=== PATIENT | male | born 1955 | race Caucasian/White ===

== ENCOUNTER 2016-06-08 06:51 | Emergency (ER) | payer OTHER ==
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
--- NOTE | 2016-06-08 08:17 | ED ORDER SUMMARY ---
..... Patient: CORWIN NICOLE OrderSheet [facility] VisitID: [id number] [place] [address] 61y, M Registration Date/Time: 06/08/2016 ORDER SHEET Weight: 117.9 kg (stated) Allergies: No Known Drug Allergy GENERAL ORDERS: Chest 1V Urgent (07:06/08/2016 Segundo OSROIO) (7:24 RMarsden R.N.) CT Head wo Cont Urgent (07:06/08/2016 Segundo OSORIO) (7:49 RMarsden R.N.) Shoulder 2V or more Left Urgent (07:06/08/2016 Segundo OSORIO) (7:24 RMarsden R.N.) MEDICATION ORDERS: Toradol IM 60 mg (NOW) (07:06/08/2016 Segundo OSORIO) (Ack 7:25 RMarsden R.N.) (7:49 RMarsden R.N.) Hydrocodone-APAP PO 5/325 mg (NOW, HIGH ALERT MEDICATION) (07:12 06/08/2016 Segundo OSORIO) (Ack 7:25 RMarsden R.N.) (7:47 RMarsden R.N.) IV FLUIDS: ORDER SHEET NOTES: [Electronically signed by Mariama Steiner R.N. (08:54 06/08/2016)] [Electronically signed by Estela Chun MD (12:44 06/13/2016)] [Electronically locked/signed by Mariama Steiner R.N. (08:54 06/08/2016)]
--- NOTE | 2016-06-08 08:17 | ED ORDER SUMMARY ---
..... Patient: CORWIN NICOLE OrderSheet [facility] VisitID: [id number] [place] [address] 61y, M Registration Date/Time: 06/08/2016 ORDER SHEET Weight: 117.9 kg (stated) Allergies: No Known Drug Allergy GENERAL ORDERS: Chest 1V Urgent (07:06/08/2016 Segundo OSORIO) (7:24 RMarsden R.N.) CT Head wo Cont Urgent (07:06/08/2016 Segundo OSORIO) (7:49 RMarsden R.N.) Shoulder 2V or more Left Urgent (07:06/08/2016 Segundo OSORIO) (7:24 RMarsden R.N.) MEDICATION ORDERS: Toradol IM 60 mg (NOW) (07:06/08/2016 Segundo OSORIO) (Ack 7:25 RMarsden R.N.) (7:49 RMarsden R.N.) Hydrocodone-APAP PO 5/325 mg (NOW, HIGH ALERT MEDICATION) (07:12 06/08/2016 Segundo OSORIO) (Ack 7:25 RMarsden R.N.) (7:47 RMarsden R.N.) IV FLUIDS: ORDER SHEET NOTES: [Electronically signed by Mariama Steiner R.N. (08:54 06/08/2016)] [Electronically signed by Estela Chun MD (12:44 06/13/2016)] [Electronically locked/signed by Mariama Steiner R.N. (08:54 06/08/2016)]
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
--- NOTE | 2016-06-13 12:44 | ED MED RECONCILIATION SUMMARY ---
Patient: CORWIN NICOLE Medication Reconciliation Report [facility] VisitID: [id number] [address] [place] [address] 61y, M Registration Date/Time: 06/08/2016 Weight: 117.9 kg Height/Length: 73 in. BMI: 34.3 ALLERGIES: No Known Drug Allergy The patient's Home Medications are listed below: CONTINUE TAKING THE FOLLOWING MEDICATIONS: Lisinopril Oral 40 mg, daily The source(s) of the original Home Medication information: patient The following Medications were given to the patient in the Emergency Department: Hydrocodone-APAP [PO] PO 1 tab, administered: 06/08/2016 7:47:00 AM Toradol [IM] IM 60 mg, administered: 06/08/2016 7:48:00 AM The following Medications were prescribed to the patient: Hydrocodone/APAP 5mg / 325mg: take 1-2 orally every 6 hours as needed for pain. Dispense twelve (12). No refill. -- Estela Chun MD
--- NOTE | 2016-06-13 12:44 | ED MED RECONCILIATION SUMMARY ---
Patient: CORWIN NICOLE Medication Reconciliation Report [facility] VisitID: [id number] [address] [place] [address] 61y, M Registration Date/Time: 06/08/2016 Weight: 117.9 kg Height/Length: 73 in. BMI: 34.3 ALLERGIES: No Known Drug Allergy The patient's Home Medications are listed below: CONTINUE TAKING THE FOLLOWING MEDICATIONS: Lisinopril Oral 40 mg, daily The source(s) of the original Home Medication information: patient The following Medications were given to the patient in the Emergency Department: Hydrocodone-APAP [PO] PO 1 tab, administered: 06/08/2016 7:47:00 AM Toradol [IM] IM 60 mg, administered: 06/08/2016 7:48:00 AM The following Medications were prescribed to the patient: Hydrocodone/APAP 5mg / 325mg: take 1-2 orally every 6 hours as needed for pain. Dispense twelve (12). No refill. -- Estela Chun MD
--- NOTE | 2016-06-13 12:44 | ED MAR SUMMARY ---
..... Medication Administration Record [facility] [address] [place] [address] Patient: CORWIN NICOLE Visit ID: [id number] 61y, M Weight: 117.9 kg Height/Length: 73 in BMI: 34.3 ALLERGIES: No Known Drug Allergy Given 07:47 06/08/2016 Mariama Steiner, RDanielNDaniel Medication Administered: HYDROCODONE-APAP [PO] (HYDROCODONE-ACETAMINOPHEN), Dose: 1 tab 5/325 mg Tablets PO. Medication Ordered: Hydrocodone-APAP PO 5/325 mg (NOW, HIGH ALERT MEDICATION). Given 07:48 06/08/2016 Mariama Steiner, RDanielN. Medication Administered: TORADOL [IM] (KETOROLAC TROMETHAMINE), Dose: 60 mg IM. Medication Ordered: Toradol IM 60 mg (NOW).
--- NOTE | 2016-06-13 12:44 | ED MAR SUMMARY ---
..... Medication Administration Record [facility] [address] [place] [address] Patient: CORWIN NICOLE Visit ID: [id number] 61y, M Weight: 117.9 kg Height/Length: 73 in BMI: 34.3 ALLERGIES: No Known Drug Allergy Given 07:47 06/08/2016 Mariama Steiner, RDanielNDaniel Medication Administered: HYDROCODONE-APAP [PO] (HYDROCODONE-ACETAMINOPHEN), Dose: 1 tab 5/325 mg Tablets PO. Medication Ordered: Hydrocodone-APAP PO 5/325 mg (NOW, HIGH ALERT MEDICATION). Given 07:48 06/08/2016 Mariama Steiner, RDanielN. Medication Administered: TORADOL [IM] (KETOROLAC TROMETHAMINE), Dose: 60 mg IM. Medication Ordered: Toradol IM 60 mg (NOW).
== END 2016-06-08 08:28 | disposition home or self-care (01) ==
LOC: ED SRH 06:51
DX: S16.1XXA Strain of muscle, fascia and tendon at neck level, initial encounter (principal); S46.812A Strain of other muscles, fascia and tendons at shoulder and upper arm level, left arm, initial encounter; S20.212A Contusion of left front wall of thorax, initial encounter; V43.52XA Car driver injured in collision with other type car in traffic accident, initial encounter; Y93.89 Activity, other specified; Y92.9 Unspecified place or not applicable; Y99.9 Unspecified external cause status; I10 Essential (primary) hypertension; Z79.899 Other long term (current) drug therapy

== ENCOUNTER 2016-06-18 14:35 | Emergency (ER) | payer OTHER ==
--- NOTE | 2016-06-18 16:07 | DIAGNOSTIC IMAGING REPORT ---
PROCEDURE: CT HEAD WITHOUT CONTRAST INDICATION: HEADACHE TECHNIQUE: Axial CT images were acquired through the head. Coronal and sagittal reformations were created. COMPARISON: Head CT 06/08/2016 FINDINGS: Left posterior parietal craniotomy with underlying encephalomalacia. Sulci and ventricular system are otherwise unremarkable. Minor white matter chronic ischemic changes. No evidence of an acute CVA, hemorrhage, mass or midline shift. Visualized mastoids and sinuses are clear. IMPRESSION: 1. No acute intracranial abnormality 2. Left parietal craniotomy and underlying encephalomalacia 3. Minor white matter chronic ischemic changes 4. Findings discussed with Klaus at 04:[address] scans at this facility use dose modulation, iterative reconstruction, and/or weight-based dosing when appropriate to reduce radiation dose to as low as reasonably achievable.
--- NOTE | 2016-06-18 16:26 | DIAGNOSTIC IMAGING REPORT ---
PROCEDURE: XR CHEST 2 VIEW INDICATION: CHEST PAIN TECHNIQUE: PA and lateral views. COMPARISON: 06/08/2016 chest FINDINGS: Lungs are clear. Heart and mediastinum are normal. Thorax is normal. IMPRESSION: 1. Negative chest.
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
--- NOTE | 2016-06-18 16:48 | ED ORDER SUMMARY ---
..... Patient: CORWIN NICOLE OrderSheet [facility] VisitID: [id number] [place] [address] 61y, M Registration Date/Time: 06/18/2016 ORDER SHEET Weight: 115.6 kg (stated) Allergies: No Known Drug Allergy GENERAL ORDERS: CT Head wo Cont Urgent (15:40 06/18/2016 EKoroleva P.A.-C) (Ack 15:41 KHoerner) (16:31 MCampbell) Chest 2V Urgent (15:45 06/18/2016 EKoroleva P.A.-C) (Ack 15:47 KHoerner) (16:31 MCampbell) EKG - ER Stat (16:16 06/18/2016 EKoroleva P.A.-C) (16:26 KHoerner) MEDICATION ORDERS: IV FLUIDS: ORDER SHEET NOTES: [Electronically signed by Liliam Enrique P.A.-C (23:36 06/18/2016)] [Electronically signed by Leonard Brantley R.N. (14:10 06/20/2016)] [Electronically locked/signed by Leonard Brantley R.N. (14:10 06/20/2016)]
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
--- NOTE | 2016-06-18 16:48 | ED ORDER SUMMARY ---
..... Patient: CORWIN NICOLE OrderSheet [facility] VisitID: [id number] [place] [address] 61y, M Registration Date/Time: 06/18/2016 ORDER SHEET Weight: 115.6 kg (stated) Allergies: No Known Drug Allergy GENERAL ORDERS: CT Head wo Cont Urgent (15:40 06/18/2016 EKoroleva P.A.-C) (Ack 15:41 KHoerner) (16:31 MCampbell) Chest 2V Urgent (15:45 06/18/2016 EKoroleva P.A.-C) (Ack 15:47 KHoerner) (16:31 MCampbell) EKG - ER Stat (16:16 06/18/2016 EKoroleva P.A.-C) (16:26 KHoerner) MEDICATION ORDERS: IV FLUIDS: ORDER SHEET NOTES: [Electronically signed by Liliam Enrique P.A.-C (23:36 06/18/2016)] [Electronically signed by Leonard Brantley R.N. (14:10 06/20/2016)] [Electronically locked/signed by Leonard Brantley R.N. (14:10 06/20/2016)]
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
--- NOTE | 2016-06-20 14:10 | ED DISCHARGE INSTRUCTIONS ---
Patient: CORWIN NICOLE General Instructions [facility] VisitID: [id number] [place] [address] 61y, M Registration Date/Time: 06/18/2016 Minor closed head injury. Concussion. Unknown whether a loss of consciousness occurred. Contusion. INSTRUCTIONS (no major activity/ physical exertion). Prescription Medications: Zofran (orally disintegrating tablets) 4 mg: take 1 orally every 6 hours for 3 days as needed for nausea. Dispense fifteen (15). No refill. Substitution is permissible. Zofran ODT 4 mg: take 1 orally every 6 hours as needed for nausea. Dispense ten (10). No refill. Substitution is permissible. OTC Medications: Acetaminophen ER 650 mg (available over the counter): take 1 orally every 8 hours for 5 days, as needed for pain. Dispense fifteen (15). No refill. Follow-up: Follow up with your doctor in three. ADDITIONAL INFORMATION Chest Contusion Acontusion is a bruise to the skin, muscle or ribs. It may cause pain, tenderness, swelling and a purplish discoloration. Contusions take a few days to a few weeks to heal. Home Care: Rest. You should not be doing any heavy lifting or strenuous exertion, or any activity that causes pain. You may use acetaminophen (Tylenol) or ibuprofen (Motrin, Advil) to control pain, unless another pain medicine was prescribed. [ NOTE: If you have chronic liver or kidney disease or ever had a stomach ulcer or GI bleeding, talk with your doctor before using these medicines.] Follow Up with your doctor during the next week or as directed. Get Prompt Medical Attention if any of the following occur: Shortness of breath Increasing chest pain with breathing Dizziness, weakness or fainting New or worsening of abdominal pain Fever of 100.4F (38C) or higher, or as directed by your healthcare provider Concussion (No Wake-Up) A concussion happens when you hit your head with enough force to shake up the brain. This may cause you to lose consciousness be "knocked out" - but not always. Depending on how hard you hit your head, it will take from a few hours up to a few days to get better. Sometimes symptoms may last a few months or longer. This is called post-concussion syndrome. At first, you may have a headache, nausea, vomiting, or dizziness. You may also have problems concentrating or remembering things. This is normal. Symptoms should get better as the hours and days go by. Symptoms that get worse could be a sign of a more serious injury. This might be a bruise or bleeding in the brain. Thats why its important to watch for the warning signs listed below. Home care Follow these tips to help care for yourself at home: During the next day (24 hours) someone must stay with you to check for the signs below. If your face or scalp swells, apply an ice pack for 20 minutes every 1 to 2 hours. Do this until the swelling starts to go down. You can make an ice pack by putting ice cubes in a plastic bag and wrapping the bag in a towel. for 20 minutes every 1-2 hours until the swelling starts to go down. You may use acetaminophen to control pain, unless another pain medicine was prescribed. If you have chronic liver or kidney disease, talk with your doctor before using these medicines. Also talk with your doctor if you ever had a stomach ulcer or GI bleeding. For the next 24 hours: Dont drink alcohol or take sedatives or medicines that make you sleepy. Dont drive or operate machinery. Avoid doing anything strenuous. Dont lift or strain. Dont return to sports or any activity that could cause you to hit your head until all symptoms are gone and you have been cleared by your doctor. A second head injury before fully recovering from the first one can lead to serious brain injury. Follow-up care Follow up with your doctor in 1 week, or as directed. Note: A radiologist will review any X-rays or CT scans that were taken. You will be told of any new findings that may affect your care. When to seek medical care Get prompt medical attention if any of these occur: Repeated vomiting Headache or dizziness that is severe or gets worse Unusual drowsiness, or unable to wake up as usual Confusion or change in behavior or speech, or memory loss Blurred vision Convulsion (seizure) Swelling on the scalp or face that gets worse Redness, warmth, or pus from the swollen area Fluid draining from or bleeding from the nose or ears Ondansetron Hydrochloride Oral tablet What is this medicine? ONDANSETRON (on SILVIA se varun) is used to treat nausea and vomiting caused by chemotherapy. It is also used to prevent or treat nausea and vomiting after surgery. How should I use this medicine? Take this medicine by mouth with a glass of water. Follow the directions on your prescription label. Take your doses at regular intervals. Do not take your medicine more often than directed. Talk to your senior analytic consultant regarding the use of this medicine in children. Special care may be needed. What side effects may I notice from receiving this medicine? Side effects that you should report to your doctor or health care management specialist as soon as possible: allergic reactions like skin rash, itching or hives, swelling of the face, lips or tongue breathing problems dizziness fast or irregular heartbeat feeling faint or lightheaded, falls fever and chills swelling of the hands or feet tightness in the chest Side effects that usually do not require medical attention (report to your doctor or health care management specialist if they continue or are bothersome): constipation or diarrhea headache What may interact with this medicine? Do not take this medicine with any of the following medications: -apomorphine -cisapride -dofetilide -dronedarone -pimozide -thioridazine -ziprasidone This medicine may also interact with the following medications: -carbamazepine -phenytoin -rifampicin -tramadol -other medicines that prolong the QT interval (cause an abnormal heart rhythm) What if I miss a dose? If you miss a dose, take it as soon as you can. If it is almost time for your next dose, take only that dose. Do not take double or extra doses. Where should I keep my medicine? Keep out of the reach of children. Store between 2 and 30 degrees C (36 and 86 degrees F). Throw away any unused medicine after the expiration date. What should I tell my health care provider before I take this medicine? They need to know if you have any of these conditions: heart disease history of irregular heartbeat liver disease low levels of magnesium or potassium in the blood an unusual or allergic reaction to ondansetron, granisetron, other medicines, foods, dyes, or preservatives or trying to get breast-feeding What should I watch for while using this medicine? Check with your doctor or health care management specialist right away if you have any sign of an allergic reaction. Ondansetron Oral disintegrating tablet What is this medicine? ONDANSETRON (on SILVIA se varun) is used to treat nausea and vomiting caused by chemotherapy. It is also used to prevent or treat nausea and vomiting after surgery. How should I use this medicine? These tablets are made to dissolve in the mouth. Do not try to push the tablet through the foil backing. With dry hands, peel away the foil backing and gently remove the tablet. Place the tablet in the mouth and allow it to dissolve, then swallow. While you may take these tablets with water, it is not necessary to do so. Talk to your senior analytic consultant regarding the use of this medicine in children. Special care may be needed. What side effects may I notice from receiving this medicine? Side effects that you should report to your doctor or health care management specialist as soon as possible: allergic reactions like skin rash, itching or hives, swelling of the face, lips, or tongue breathing problems dizziness fast or irregular heartbeat feeling faint or lightheaded, falls fever and chills swelling of the hands and feet tightness in the chest Side effects that usually do not require medical attention (report to your doctor or health care management specialist if they continue or are bothersome): constipation or diarrhea headache What may interact with this medicine? Do not take this medicine with any of the following medications: -apomorphine -cisapride -dofetilide -dronedarone -pimozide -thioridazine -ziprasidone This medicine may also interact with the following medications: -carbamazepine -phenytoin -rifampicin -tramadol -other medicines that prolong the QT interval (cause an abnormal heart rhythm) What if I miss a dose? If you miss a dose, take it as soon as you can. If it is almost time for your next dose, take only that dose. Do not take double or extra doses. Where should I keep my medicine? Keep out of the reach of children. Store between 2 and 30 degrees C (36 and 86 degrees F). Throw away any unused medicine after the expiration date. What should I tell my health care provider before I take this medicine? They need to know if you have any of these conditions: heart disease history of irregular heartbeat liver disease low levels of magnesium or potassium in the blood an unusual or allergic reaction to ondansetron, granisetron, other medicines, foods, dyes, or preservatives or trying to get breast-feeding What should I watch for while using this medicine? Check with your doctor or health care management specialist as soon as you can if you have any sign of an allergic reaction. Acetaminophen Oral tablet What is this medicine? ACETAMINOPHEN (a set a FARZANA keith fen) is a pain reliever. It is used to treat mild pain and fever. How should I use this medicine? Take this medicine by mouth with a glass of water. Follow the directions on the package or prescription label. Take your medicine at regular intervals. Do not take your medicine more often than directed. Talk to your senior analytic consultant regarding the use of this medicine in children. While this drug may be prescribed for children as young as 6 years of age for selected conditions, precautions do apply. What side effects may I notice from receiving this medicine? Side effects that you should report to your doctor or health care management specialist as soon as possible: allergic reactions like skin rash, itching or hives, swelling of the face, lips, or tongue breathing problems fever or sore throat redness, blistering, peeling or loosening of the skin, including inside the mouth trouble passing urine or change in the amount of urine unusual bleeding or bruising unusually weak or tired yellowing of the eyes or skin Side effects that usually do not require medical attention (report to your doctor or health care management specialist if they continue or are bothersome): headache nausea, stomach upset What may interact with this medicine? alcohol imatinib isoniazid other medicines with acetaminophen What if I miss a dose? If you miss a dose, take it as soon as you can. If it is almost time for your next dose, take only that dose. Do not take double or extra doses. Where should I keep my medicine? Keep out of reach of children. Store at room temperature between 20 and 25 degrees C (68 and 77 degrees F). Protect from moisture and heat. Throw away any unused medicine after the expiration date. What should I tell my health care provider before I take this medicine? They need to know if you have any of these conditions: if you frequently drink alcohol containing drinks liver disease an unusual or allergic reaction to acetaminophen, other medicines, foods, dyes or preservatives or trying to get breast-feeding What should I watch for while using this medicine? Tell your doctor or health care management specialist if the pain lasts more than 10 days (5 days for children), if it gets worse, or if there is a new or different kind of pain. Also, check with your doctor if a fever lasts for more than 3 days. Do not take other medicines that contain acetaminophen with this medicine. Always read labels carefully. If you have questions, ask your doctor or pharmacist. If you take too much acetaminophen get medical help right away. Too much acetaminophen can be very dangerous and cause liver damage. Even if you do not have symptoms, it is important to get help right away. You have been given the following additional information: Chest Wall Contusion Concussion, No Wake-Up Ondansetron Hydrochloride Oral tablet Ondansetron Oral disintegrating tablet Acetaminophen Oral tablet (Electronically signed by Liliam Enrique P.A.-C 06/18/2016 23:36)
--- NOTE | 2016-06-20 14:10 | ED MAR SUMMARY ---
..... Medication Administration Record [facility] [address], [place] [id number] Patient: CORWIN NICOLE Visit ID: [id number] 61y, M Weight: 115.6 kg Height/Length: 72 in BMI: 34.6 ALLERGIES: No Known Drug Allergy
--- NOTE | 2016-06-20 14:10 | ED MED RECONCILIATION SUMMARY ---
Patient: CORWIN NICOLE Medication Reconciliation Report [facility] VisitID: [id number] [place] [address] 61y, M Registration Date/Time: 06/18/2016 Weight: 115.6 kg Height/Length: 72 in. BMI: 34.6 ALLERGIES: No Known Drug Allergy The patient's Home Medications are listed below: THE FOLLOWING MEDICATIONS NEED TO BE RECONCILED: Lisinopril Oral 40 mg, daily The source(s) of the original Home Medication information: Not obtained. The following Medications were given to the patient in the Emergency Department: None. The following Medications were prescribed to the patient: Acetaminophen ER 650 mg (available over the counter): take 1 orally every 8 hours for 5 days, as needed for pain. Dispense fifteen (15). No refill. -- Liliam Enrique, P.A.-C Zofran (orally disintegrating tablets) 4 mg: take 1 orally every 6 hours for 3 days as needed for nausea. Dispense fifteen (15). No refill. Substitution is permissible. -- Liliam Enrique, P.A.-C Zofran ODT 4 mg: take 1 orally every 6 hours as needed for nausea. Dispense ten (10). No refill. Substitution is permissible. -- Liliam Enrique, P.A.-C
--- NOTE | 2016-06-20 14:10 | ED MAR SUMMARY ---
..... Medication Administration Record [facility] [address] [place], [place] [id number] Patient: CORWIN NICOLE Visit ID: [id number] 61y, M Weight: 115.6 kg Height/Length: 72 in BMI: 34.6 ALLERGIES: No Known Drug Allergy
--- NOTE | 2016-06-20 14:10 | ED MED RECONCILIATION SUMMARY ---
Patient: CORWIN NICOLE Medication Reconciliation Report [facility] VisitID: [id number] [place] [address] 61y, M Registration Date/Time: 06/18/2016 Weight: 115.6 kg Height/Length: 72 in. BMI: 34.6 ALLERGIES: No Known Drug Allergy The patient's Home Medications are listed below: THE FOLLOWING MEDICATIONS NEED TO BE RECONCILED: Lisinopril Oral 40 mg, daily The source(s) of the original Home Medication information: Not obtained. The following Medications were given to the patient in the Emergency Department: None. The following Medications were prescribed to the patient: Acetaminophen ER 650 mg (available over the counter): take 1 orally every 8 hours for 5 days, as needed for pain. Dispense fifteen (15). No refill. -- Liliam Enrique, P.A.-C Zofran (orally disintegrating tablets) 4 mg: take 1 orally every 6 hours for 3 days as needed for nausea. Dispense fifteen (15). No refill. Substitution is permissible. -- Liliam Enrique, P.A.-C Zofran ODT 4 mg: take 1 orally every 6 hours as needed for nausea. Dispense ten (10). No refill. Substitution is permissible. -- Liliam Enrique, P.A.-C
== END 2016-06-18 17:00 | disposition home or self-care (01) ==
LOC: ED SRH 14:35
DX: S06.0X0D Concussion without loss of consciousness, subsequent encounter (principal); S09.90XD Unspecified injury of head, subsequent encounter; S00.93XD Contusion of unspecified part of head, subsequent encounter; V49.9XXD Car occupant (driver) (passenger) injured in unspecified traffic accident, subsequent encounter; I10 Essential (primary) hypertension; Z79.899 Other long term (current) drug therapy